=== PATIENT | male | born 1960 | race Caucasian/White ===

== ENCOUNTER → 2016-04-22 | Outpatient (CLI) | payer BC ==
[~2016-04-22] MED LIST: AMLODIPINE-BENAZEPRI; AMLODIPINE5 MG PO; CLINDAMYCIN HC300 MG PO; CLONAZEPAM1 MG PO; CLONIDINE HCL0.1 MG PO; COREG25 MG PO; COREG3.125 MG PO; CYMBALTA20 MG PO; DO NOT PROFILE T1 EA; DULOXETINE HCL DR 60; FLEXERIL10 MG PO; HYDR12.5C PO; LOSARTAN POTAS100 M1 PO; MECLIZINE HCL25 M2 PO; MEDROL DOSEPAK4 MG PO; MOTRIN800 MG PO; NAPROSYN500 MG PO; OMEPRAZOLE40 MG PO; OXYCODONE AND A1 TA3 PO; PREDNICOT10 MG PO; PREDNICOT20 MG PO; PREDNISONE10 MG PO; SPIRIVA -- 3018 MCG PO; TERAZOSIN HCL2 M1 PO; TERAZOSIN HCL5 M1 PO; VALIUM2 MG PO; VICODIN 5/500 505 MG PO; VISTARIL25 MG PO; ZUBSOLV1 TA2 SL; [UNRECOGNIZED DRUG - OTHER] PO
== END | disposition home or self-care (01) ==
LOC: RESCLI 01:33
DX: I10 Essential (primary) hypertension (principal); F41.1 Generalized anxiety disorder; F32.9 Major depressive disorder, single episode, unspecified

== ENCOUNTER → 2016-09-03 | Outpatient (CLI) | payer BC | END | disposition home or self-care (01) | LOC: RESCLI 03:23 | DX: M25.561 Pain in right knee (principal); R60.9 Edema, unspecified; I10 Essential (primary) hypertension; F17.200 Nicotine dependence, unspecified, uncomplicated; Z71.6 Tobacco abuse counseling ==

== ENCOUNTER → 2016-09-23 | Outpatient (CLI) | payer BC | END | disposition home or self-care (01) | LOC: RESCLI 02:24 | DX: I10 Essential (primary) hypertension (principal); R60.9 Edema, unspecified; M17.0 Bilateral primary osteoarthritis of knee; F33.9 Major depressive disorder, recurrent, unspecified; M54.9 Dorsalgia, unspecified; G89.29 Other chronic pain; E66.01 Morbid (severe) obesity due to excess calories; Z71.6 Tobacco abuse counseling; Z72.0 Tobacco use ==

== ENCOUNTER → 2016-10-16 | Outpatient (CLI) | payer BC | END | disposition home or self-care (01) | LOC: RAD 03:05 → RESCLI 03:05 | DX: M77.32 Calcaneal spur, left foot (principal); M77.31 Calcaneal spur, right foot ==

== ENCOUNTER → 2017-01-28 | Outpatient (CLI) | payer BC | END | disposition home or self-care (01) | LOC: RESCLI 02:28 | DX: I10 Essential (primary) hypertension (principal); F41.1 Generalized anxiety disorder; E66.01 Morbid (severe) obesity due to excess calories; M54.5 Low back pain; R60.9 Edema, unspecified; K21.9 Gastro-esophageal reflux disease without esophagitis; H81.10 Benign paroxysmal vertigo, unspecified ear; Z72.0 Tobacco use; Z71.6 Tobacco abuse counseling; Z88.5 Allergy status to narcotic agent ==

== ENCOUNTER → 2017-03-11 | Outpatient (CLI) | payer BC | END | disposition home or self-care (01) | LOC: RESCLI 01:04 | DX: I10 Essential (primary) hypertension (principal); F41.1 Generalized anxiety disorder; E66.01 Morbid (severe) obesity due to excess calories; M54.5 Low back pain; J44.9 Chronic obstructive pulmonary disease, unspecified; R60.9 Edema, unspecified; Z72.0 Tobacco use; Z71.6 Tobacco abuse counseling; Z91.018 Allergy to other foods ==

== ENCOUNTER 2017-05-12 19:41 | Emergency (ER) | payer BC ==
[~2017-05-12] VITALS: Ht 182.8 cm; Wt 136.1 kg
[2017-05-12] MEDS ORDERED: FUROSEMIDE40 MG PO (20:04)
[2017-05-12] MEDS ORDERED: POTASSIUM CHLO10 ME4 PO (20:05)
[2017-05-12] MEDS ORDERED: SPIRIVA -- 3018 MCG INH (20:05)
[2017-05-12] MEDS ORDERED: KETOROLAC10 MG PO (23:09)
== END 2017-05-12 23:16 | disposition home or self-care (01) ==
LOC: ED 19:41
DX: S82.832A Other fracture of upper and lower end of left fibula, initial encounter for closed fracture (principal); S92.342A Displaced fracture of fourth metatarsal bone, left foot, initial encounter for closed fracture; F17.200 Nicotine dependence, unspecified, uncomplicated; Z79.899 Other long term (current) drug therapy; W18.39XA Other fall on same level, initial encounter; Y93.89 Activity, other specified; Y92.89 Other specified places as the place of occurrence of the external cause; Y99.8 Other external cause status

== ENCOUNTER → 2017-05-14 | Outpatient (CLI) | payer BC ==
[~2017-05-14] MED LIST changes: +FUROSEMIDE40 MG PO; +KETOROLAC10 MG PO; +POTASSIUM CHLO10 ME4 PO; +SPIRIVA -- 3018 MCG INH
== END | disposition home or self-care (01) ==
LOC: RESCLI
DX: I10 Essential (primary) hypertension (principal); F41.1 Generalized anxiety disorder; E66.01 Morbid (severe) obesity due to excess calories; K21.9 Gastro-esophageal reflux disease without esophagitis; J44.9 Chronic obstructive pulmonary disease, unspecified; R60.0 Localized edema; M84.375A Stress fracture, left foot, initial encounter for fracture; Z72.0 Tobacco use; Z71.6 Tobacco abuse counseling

== ENCOUNTER 2017-08-07 12:48 | Emergency (ER) | payer OTHER, BC ==
[2017-08-07 13:38] LABS: HEMATOCRIT 43.2 % (42.0-52.0); HEMOGLOBIN 14.6 g/dl (14.0-18.0); MEAN CELL VOLUME 87.3 fl (80.0-94.0); MEAN CORPUSCULAR HGB 29.5 pg (27.0-31.0); MEAN CORPUSCULAR HGB CONC 33.8 g/dl (33.0-37.0); MEAN PLATELET VOLUME 8.9 fl (9.6-12.3); PLATELET COUNT AUTOMATED 407 10*3/uL (130-400); RED BLOOD COUNT 4.95 10*6/uL (4.50-5.90); RED CELL DISTRI WIDTH 13.8 % (0-14.5); WHITE BLOOD COUNT 13.7 10*3/uL (4.8-10.8)
[2017-08-07 13:50] LABS: ABG BASE EXCESS 4.4 mmol/L (-2.0-2.0); ABG HCO3 29.3 mmol/l (22-26); ABG O2 SATURATION 81.6 % (95-97); ARTERIAL BLOOD GAS PCO2 45.3 mmHg (35-45); ARTERIAL BLOOD GAS PH 7.424 (7.35-7.45)
[2017-08-07 13:52] LABS: ALBUMIN 3.4 gm/dl (3.1-4.5); ALKALINE PHOSPHATASE 136 U/L (45-117); BUN 15 mg/dl (7-24); CHLORIDE 98 mmol/L (98-107); CREATININE 0.66 mg/dL (0.70-1.30); POTASSIUM 3.6 mmol/L (3.5-5.1); SGOT/AST 26 IU/L (3-35); SGPT/ALT 28 U/L (12-78); SODIUM 136 mmol/L (136-145); TOTAL PROTEIN 7.1 gm/dL (6.4-8.2)
[2017-08-07 13:57] LABS: PLATELET SUFFICIENCY NORMAL (NORMAL); TOTAL CELLS COUNTED 100 #CELLS
== END 2017-08-07 15:35 | disposition left against medical advice (07) ==
LOC: ED 12:48
PROVIDERS: Nurse Practitioner Family
DX: S62.320A Displaced fracture of shaft of second metacarpal bone, right hand, initial encounter for closed fracture (principal); S62.322A Displaced fracture of shaft of third metacarpal bone, right hand, initial encounter for closed fracture; M54.2 Cervicalgia; F17.200 Nicotine dependence, unspecified, uncomplicated; R09.02 Hypoxemia; G89.29 Other chronic pain; V49.88XA Car occupant (driver) (passenger) injured in other specified transport accidents, initial encounter; Y93.89 Activity, other specified; Y92.413 State road as the place of occurrence of the external cause; Y99.9 Unspecified external cause status

== ENCOUNTER 2021-01-20 05:51 | Inpatient (IN) | payer OTHER ==
[2021-01-20] VITALS (8 sets, daily range): BP systolic 102–170; BP diastolic 62–89
[~2021-01-20] VITALS: Ht 182.8 cm; Wt 153.0 kg
[2021-01-20 06:16] LABS: HEMATOCRIT 50.6 % (42.0-52.0); MEAN CELL VOLUME 88.3 fl (80.0-94.0); MEAN CORPUSCULAR HGB 27.9 pg (27.0-31.0); MEAN CORPUSCULAR HGB CONC 31.6 g/dl (33.0-37.0); NUCLEATED RED BLOOD CELL 0.1 % (0.0-0.0); PLATELET COUNT AUTOMATED 422 10*3/uL (130-400); RED BLOOD COUNT 5.73 10*6/uL (4.50-5.90); RED CELL DISTRI WIDTH 14.6 % (0-14.5); WHITE BLOOD COUNT 28.2 10*3/uL (4.8-10.8)
[2021-01-20 06:38] LABS: ALKALINE PHOSPHATASE 147 U/L (45-117); BUN 16 mg/dl (7-24); CHLORIDE 100 mmol/L (98-107); CREATININE 0.77 mg/dL (0.70-1.30); SGOT/AST 40 IU/L (3-35); SGPT/ALT 31 U/L (12-78); SODIUM 134 mmol/L (136-145); TOTAL PROTEIN 7.6 gm/dL (6.4-8.2)
[2021-01-20 06:39] LABS: POLYCHROMASIA SLIGHT; POTASSIUM 4.4 mmol/L (3.5-5.1); TOTAL CELLS COUNTED 100 #CELLS; TOXIC GRANULATION SLIGHT; TROPONIN I < 0.015 ng/ml (<0.045); VACUOLATION OF NEUTROPHILS SLIGHT
[2021-01-20 06:40] LABS: PLATELET SUFFICIENCY HIGH (NORMAL)
[2021-01-20] MEDS ORDERED: DULCOLAX STOOL100 M1 PO (06:44)
[2021-01-20] MEDS ORDERED: NORVASC10 MG PO (06:44)
[2021-01-20] MEDS ORDERED: PRINIVIL20 M1 PO (06:45)
[2021-01-20] MEDS ORDERED: CYMBALTA60 MG PO (06:46)
[2021-01-20] MEDS ORDERED: VISTARIL25 MG PO (06:46)
[2021-01-20] MEDS ORDERED: SINEQUAN75 MG PO (06:47)
[2021-01-20] MEDS ORDERED: WELLBUTRIN XL300 MG PO (06:47)
[2021-01-20 07:48] LABS: ABG BASE EXCESS 1.8 mmol/L (-2.0-2.0); ARTERIAL BLOOD GAS PH 7.269 (7.35-7.45); ARTERIAL BLOOD GAS PO2 77.4 (80-90)
[2021-01-20 08:18] LABS: BILIRUBIN Negative (Negative); BLOOD Negative (Negative); CLARITY Clear (Clear); COLOR Yellow (Yellow); GLUCOSE Negative (Negative); KETONE Negative (Negative); LEUKO ESTERASE Negative (Negative); NITRITE Negative (Negative); SPECIFIC GRAVITY 1.015 (1.001-1.030)
[2021-01-20 08:25] LABS: URINE AMPHETAMINES < 1000 (1000ng/ml); URINE BARBITURATES < 200 (200ng/ml); URINE BENZODIAZEPINES < 200 (200ng/ml); URINE CANNABINOIDS (THC) < 50 (50ng/ml); URINE COCAINE < 300 (300ng/ml); URINE METHADONE < 300 (300ng/ml); URINE OPIATES < 300 (300ng/ml); URINE PHENCYCLIDINE < 25 (25ng/ml)
[2021-01-20 08:30] LABS: BACTERIA TRACE; EPITHELIAL CELLS 0-2; MUCOUS 2+; WBC 0-2 wbc/hpf (0-5)
[2021-01-21] VITALS: BP 95/52
[2021-01-21 04:00] VITALS: BP 101/67
[2021-01-21 05:53] LABS: ALBUMIN 2.3 gm/dl (3.1-4.5); ALKALINE PHOSPHATASE 101 U/L (45-117); CHLORIDE 103 mmol/L (98-107); CREATININE 1.03 mg/dL (0.70-1.30); POTASSIUM 4.2 mmol/L (3.5-5.1); SGOT/AST 12 IU/L (3-35); SGPT/ALT 20 U/L (12-78); SODIUM 136 mmol/L (136-145)
[2021-01-21 05:57] LABS: BUN 27 mg/dl (7-24)
[2021-01-21 06:12] LABS: HEMATOCRIT 43.9 % (42.0-52.0); MEAN CORPUSCULAR HGB 27.8 pg (27.0-31.0); MEAN CORPUSCULAR HGB CONC 30.1 g/dl (33.0-37.0); MEAN PLATELET VOLUME 9.9 fl (9.6-12.3); PLATELET COUNT AUTOMATED 302 10*3/uL (130-400); RED BLOOD COUNT 4.74 10*6/uL (4.50-5.90); WHITE BLOOD COUNT 25.5 10*3/uL (4.8-10.8)
[2021-01-21 06:15] LABS: MEAN CELL VOLUME 92.6 fl (80.0-94.0)
[2021-01-21 06:47] LABS: PLATELET SUFFICIENCY NORMAL (NORMAL); TOTAL CELLS COUNTED 100 #CELLS; TOXIC GRANULATION SLIGHT; VACUOLATION OF NEUTROPHILS SLIGHT
[2021-01-21 06:48] LABS: BURR CELLS FEW; POLYCHROMASIA SLIGHT
[2021-01-21 08:00] VITALS: BP 147/90
[2021-01-21 12:00] VITALS: BP 98/60
[2021-01-21 16:00] VITALS: BP 135/79
[2021-01-21 20:00] VITALS: BP 145/75
[2021-01-22] VITALS: BP 109/72
[2021-01-22 06:09] LABS: ALBUMIN 2.3 gm/dl (3.1-4.5); BUN 32 mg/dl (7-24); CHLORIDE 104 mmol/L (98-107); POTASSIUM 4.6 mmol/L (3.5-5.1); SODIUM 133 mmol/L (136-145)
[2021-01-22 06:12] LABS: ALKALINE PHOSPHATASE 107 U/L (45-117); CREATININE 0.88 mg/dL (0.70-1.30); HEMATOCRIT 44.8 % (42.0-52.0); MEAN CORPUSCULAR HGB 27.5 pg (27.0-31.0); MEAN CORPUSCULAR HGB CONC 29.9 g/dl (33.0-37.0); MEAN PLATELET VOLUME 9.7 fl (9.6-12.3); PLATELET COUNT AUTOMATED 324 10*3/uL (130-400); RED BLOOD COUNT 4.87 10*6/uL (4.50-5.90); RED CELL DISTRI WIDTH 14.8 % (0-14.5); SGOT/AST 15 IU/L (3-35); SGPT/ALT 22 U/L (12-78); TOTAL PROTEIN 6.8 gm/dL (6.4-8.2); WHITE BLOOD COUNT 21.7 10*3/uL (4.8-10.8)
[2021-01-22 06:47] LABS: BASOPHILS 1 % (0-1); PLATELET SUFFICIENCY NORMAL (NORMAL); TOTAL CELLS COUNTED 100 #CELLS
[2021-01-22 08:00] VITALS: BP 128/68
[2021-01-22 12:00] VITALS: BP 117/69
[2021-01-22 15:26] VITALS: BP 113/63
[2021-01-22 20:00] VITALS: BP 110/89
[2021-01-23] VITALS: BP 125/58
[2021-01-23 06:21] LABS: HEMATOCRIT 44.9 % (42.0-52.0); MEAN CELL VOLUME 90.2 fl (80.0-94.0); MEAN CORPUSCULAR HGB 27.7 pg (27.0-31.0); MEAN CORPUSCULAR HGB CONC 30.7 g/dl (33.0-37.0); MEAN PLATELET VOLUME 9.8 fl (9.6-12.3); PLATELET COUNT AUTOMATED 366 10*3/uL (130-400); RED BLOOD COUNT 4.98 10*6/uL (4.50-5.90); RED CELL DISTRI WIDTH 14.6 % (0-14.5); WHITE BLOOD COUNT 17.6 10*3/uL (4.8-10.8)
[2021-01-23 06:22] LABS: ALBUMIN 2.3 gm/dl (3.1-4.5); ALKALINE PHOSPHATASE 121 U/L (45-117); BUN 26 mg/dl (7-24); CHLORIDE 101 mmol/L (98-107); CREATININE 0.77 mg/dL (0.70-1.30); POTASSIUM 4.5 mmol/L (3.5-5.1); SGOT/AST 11 IU/L (3-35); SGPT/ALT 21 U/L (12-78); SODIUM 136 mmol/L (136-145)
[2021-01-23 07:19] LABS: PLATELET SUFFICIENCY NORMAL (NORMAL); POLYCHROMASIA SLIGHT; TOTAL CELLS COUNTED 100 #CELLS
[2021-01-23 07:20] LABS: TOXIC GRANULATION SLIGHT
[2021-01-23 08:00] VITALS: BP 139/86
[2021-01-23 08:44] LABS: ABG BASE EXCESS 3.7 mmol/L (-2.0-2.0); ARTERIAL BLOOD GAS PH 7.333 (7.35-7.45); ARTERIAL BLOOD GAS PO2 55.5 (80-90)
[2021-01-23 09:40] VITALS: BP 124/76
[2021-01-23 12:00] VITALS: BP 130/76
[2021-01-23 16:00] VITALS: BP 123/82
[2021-01-23 16:21] LABS: BUN 24 mg/dl (7-24); CHLORIDE 101 mmol/L (98-107); CREATININE 0.76 mg/dL (0.70-1.30); POTASSIUM 4.5 mmol/L (3.5-5.1); SODIUM 136 mmol/L (136-145)
[2021-01-23 20:00] VITALS: BP 130/74
[2021-01-24] VITALS: BP 131/80
[2021-01-24 04:00] VITALS: BP 152/87
[2021-01-24 08:00] VITALS: BP 129/90
[2021-01-24] MEDS ORDERED: BUMETANIDE2 MG PO (09:56)
[2021-01-24 12:00] VITALS: BP 128/80
[2021-01-24 16:00] VITALS: BP 139/86
[2021-01-24 20:00] VITALS: BP 120/57
[2021-01-25] VITALS: BP 134/90
[2021-01-25 04:00] VITALS: BP 140/86
[2021-01-25 06:20] LABS: CHLORIDE 96 mmol/L (98-107); SODIUM 136 mmol/L (136-145)
[2021-01-25 06:41] LABS: ALBUMIN 2.3 gm/dl (3.1-4.5); ALKALINE PHOSPHATASE 125 U/L (45-117); BUN 21 mg/dl (7-24); CREATININE 0.83 mg/dL (0.70-1.30); SGOT/AST 9 IU/L (3-35); SGPT/ALT 21 U/L (12-78); TOTAL PROTEIN 7.2 gm/dL (6.4-8.2)
[2021-01-25 06:47] LABS: POTASSIUM 3.3 mmol/L (3.5-5.1)
[2021-01-25 06:48] LABS: INTERNATIONAL NORM RATIO 1.1 (2.0-3.5)
[2021-01-25 06:50] LABS: HEMATOCRIT 47.1 % (42.0-52.0); MEAN CELL VOLUME 87.2 fl (80.0-94.0); MEAN CORPUSCULAR HGB 27.4 pg (27.0-31.0); MEAN CORPUSCULAR HGB CONC 31.4 g/dl (33.0-37.0); MEAN PLATELET VOLUME 9.9 fl (9.6-12.3); PLATELET COUNT AUTOMATED 442 10*3/uL (130-400); RED CELL DISTRI WIDTH 14.6 % (0-14.5); WHITE BLOOD COUNT 14.1 10*3/uL (4.8-10.8)
[2021-01-25 07:37] LABS: PLATELET SUFFICIENCY NORMAL (NORMAL); TOTAL CELLS COUNTED 100 #CELLS
[2021-01-25 08:00] VITALS: BP 141/80
[2021-01-25 08:02] LABS: ABG BASE EXCESS 12.7 mmol/L (-2.0-2.0); ARTERIAL BLOOD GAS PH 7.458 (7.35-7.45); ARTERIAL BLOOD GAS PO2 60.1 (80-90)
[2021-01-25 12:00] VITALS: BP 128/75
[2021-01-25 16:00] VITALS: BP 162/81
[2021-01-25 20:00] VITALS: BP 165/84
[2021-01-26] VITALS: BP 141/96
[2021-01-26 04:00] VITALS: BP 128/78
[2021-01-26 05:58] LABS: ALBUMIN 2.1 gm/dl (3.1-4.5); ALKALINE PHOSPHATASE 133 U/L (45-117); BUN 23 mg/dl (7-24); CHLORIDE 96 mmol/L (98-107); CREATININE 0.82 mg/dL (0.70-1.30); POTASSIUM 3.5 mmol/L (3.5-5.1); SGOT/AST 16 IU/L (3-35); SGPT/ALT 22 U/L (12-78); SODIUM 137 mmol/L (136-145)
[2021-01-26 06:19] LABS: HEMATOCRIT 46.6 % (42.0-52.0); MEAN CELL VOLUME 86.6 fl (80.0-94.0); MEAN CORPUSCULAR HGB 27.1 pg (27.0-31.0); MEAN CORPUSCULAR HGB CONC 31.3 g/dl (33.0-37.0); MEAN PLATELET VOLUME 9.6 fl (9.6-12.3); PLATELET COUNT AUTOMATED 460 10*3/uL (130-400); RED BLOOD COUNT 5.38 10*6/uL (4.50-5.90); RED CELL DISTRI WIDTH 14.6 % (0-14.5); WHITE BLOOD COUNT 12.8 10*3/uL (4.8-10.8)
[2021-01-26 07:19] LABS: ATYPICAL LYMPHS 3 % (0-0); TOTAL CELLS COUNTED 100 #CELLS
[2021-01-26 07:20] LABS: PLATELET SUFFICIENCY HIGH (NORMAL)
[2021-01-26 07:21] LABS: MICROCYTOSIS SLIGHT
[2021-01-26 08:00] VITALS: BP 142/83
[2021-01-26 12:00] VITALS: BP 147/80
[2021-01-26 16:00] VITALS: BP 127/62
[2021-01-26 20:00] VITALS: BP 136/73
[2021-01-27] VITALS: BP 108/66
[2021-01-27 04:02] VITALS: BP 100/56
[2021-01-27 04:48] LABS: HEMATOCRIT 45.7 % (42.0-52.0); MEAN CELL VOLUME 87.5 fl (80.0-94.0); MEAN CORPUSCULAR HGB 26.8 pg (27.0-31.0); MEAN CORPUSCULAR HGB CONC 30.6 g/dl (33.0-37.0); MEAN PLATELET VOLUME 9.3 fl (9.6-12.3); PLATELET COUNT AUTOMATED 432 10*3/uL (130-400); RED BLOOD COUNT 5.22 10*6/uL (4.50-5.90); RED CELL DISTRI WIDTH 14.7 % (0-14.5); WHITE BLOOD COUNT 12.5 10*3/uL (4.8-10.8)
[2021-01-27 05:06] LABS: ALBUMIN 2.1 gm/dl (3.1-4.5); ALKALINE PHOSPHATASE 119 U/L (45-117); BUN 25 mg/dl (7-24); CHLORIDE 97 mmol/L (98-107); CREATININE 0.89 mg/dL (0.70-1.30); POTASSIUM 3.7 mmol/L (3.5-5.1); SGOT/AST 18 IU/L (3-35); SGPT/ALT 24 U/L (12-78); SODIUM 135 mmol/L (136-145); TOTAL PROTEIN 6.6 gm/dL (6.4-8.2)
[2021-01-27 06:04] LABS: ATYPICAL LYMPHS 1 % (0-0); POLYCHROMASIA SLIGHT; TOTAL CELLS COUNTED 100 #CELLS
[2021-01-27 06:05] LABS: OVALOCYTES FEW; PLATELET SUFFICIENCY HIGH (NORMAL)
[2021-01-27 08:00] VITALS: BP 113/70
[2021-01-27 12:00] VITALS: BP 111/57
[2021-01-27 16:00] VITALS: BP 120/51
[2021-01-27 20:00] VITALS: BP 130/65
[2021-01-28] VITALS: BP 98/52
[2021-01-28 04:00] VITALS: BP 116/60
[2021-01-28 06:43] LABS: BUN 28 mg/dl (7-24); CHLORIDE 96 mmol/L (98-107); CREATININE 0.95 mg/dL (0.70-1.30); HEMATOCRIT 48.8 % (42.0-52.0); MEAN CORPUSCULAR HGB CONC 29.5 g/dl (33.0-37.0); MEAN PLATELET VOLUME 9.5 fl (9.6-12.3); PLATELET COUNT AUTOMATED 398 10*3/uL (130-400); POTASSIUM 4.1 mmol/L (3.5-5.1); RED BLOOD COUNT 5.34 10*6/uL (4.50-5.90); RED CELL DISTRI WIDTH 14.9 % (0-14.5); SODIUM 135 mmol/L (136-145); WHITE BLOOD COUNT 12.6 10*3/uL (4.8-10.8)
[2021-01-28 06:46] LABS: MEAN CELL VOLUME 91.4 fl (80.0-94.0)
[2021-01-28 07:31] LABS: BASOPHILS 1 % (0-1); PLATELET SUFFICIENCY NORMAL (NORMAL); POLYCHROMASIA SLIGHT; TOTAL CELLS COUNTED 100 #CELLS
[2021-01-28 08:00] VITALS: BP 130/74
[2021-01-28 12:00] VITALS: BP 93/60
[2021-01-28 16:00] VITALS: BP 126/70
[2021-01-28 20:00] VITALS: BP 126/70
[2021-01-29] VITALS (9 sets, daily range): BP systolic 90–154; BP diastolic 52–80
[2021-01-29 05:37] LABS: BUN 31 mg/dl (7-24); CHLORIDE 97 mmol/L (98-107); CREATININE 1.13 mg/dL (0.70-1.30); POTASSIUM 4.7 mmol/L (3.5-5.1); SODIUM 135 mmol/L (136-145)
[2021-01-29 06:20] LABS: HEMATOCRIT 45.7 % (42.0-52.0); MEAN CELL VOLUME 89.4 fl (80.0-94.0); MEAN CORPUSCULAR HGB 26.8 pg (27.0-31.0); MEAN PLATELET VOLUME 9.8 fl (9.6-12.3); PLATELET COUNT AUTOMATED 467 10*3/uL (130-400); RED BLOOD COUNT 5.11 10*6/uL (4.50-5.90); RED CELL DISTRI WIDTH 14.6 % (0-14.5); WHITE BLOOD COUNT 16.6 10*3/uL (4.8-10.8)
[2021-01-29 07:11] LABS: TOTAL CELLS COUNTED 100 #CELLS
[2021-01-29 07:12] LABS: PLATELET SUFFICIENCY HIGH (NORMAL)
[2021-01-29 23:17] LABS: ABG BASE EXCESS 8.8 mmol/L (-2.0-2.0); ARTERIAL BLOOD GAS PH 7.238 (7.35-7.45); ARTERIAL BLOOD GAS PO2 52.3 (80-90)
[2021-01-30] VITALS (55 sets, daily range): BP systolic 78–130; BP diastolic 48–76
[2021-01-30 06:02] LABS: ALBUMIN 1.8 gm/dl (3.1-4.5); ALKALINE PHOSPHATASE 134 U/L (45-117); BUN 32 mg/dl (7-24); CHLORIDE 95 mmol/L (98-107); CREATININE 1.12 mg/dL (0.70-1.30); SGOT/AST 22 IU/L (3-35); SGPT/ALT 25 U/L (12-78); SODIUM 137 mmol/L (136-145); TOTAL PROTEIN 6.2 gm/dL (6.4-8.2)
[2021-01-30 06:04] LABS: POTASSIUM 3.7 mmol/L (3.5-5.1)
[2021-01-30 06:19] LABS: HEMATOCRIT 41.6 % (42.0-52.0); MEAN CELL VOLUME 89.5 fl (80.0-94.0); MEAN CORPUSCULAR HGB 26.9 pg (27.0-31.0); PLATELET COUNT AUTOMATED 410 10*3/uL (130-400); RED BLOOD COUNT 4.65 10*6/uL (4.50-5.90); RED CELL DISTRI WIDTH 14.6 % (0-14.5); WHITE BLOOD COUNT 14.3 10*3/uL (4.8-10.8)
[2021-01-30 07:07] LABS: ABG BASE EXCESS 11.5 mmol/L (-2.0-2.0); ARTERIAL BLOOD GAS PH 7.394 (7.35-7.45); ARTERIAL BLOOD GAS PO2 61.9 (80-90)
[2021-01-30 07:11] LABS: ATYPICAL LYMPHS 2 % (0-0); TOTAL CELLS COUNTED 100 #CELLS
[2021-01-30 07:12] LABS: PLATELET SUFFICIENCY NORMAL (NORMAL)
[2021-01-30 13:16] LABS: ABG BASE EXCESS 9.9 mmol/L (-2.0-2.0); ARTERIAL BLOOD GAS PH 7.409 (7.35-7.45); ARTERIAL BLOOD GAS PO2 44.5 (80-90)
[2021-01-31] VITALS (7 sets, daily range): BP systolic 105–119; BP diastolic 4–70
[2021-01-31 06:31] LABS: HEMATOCRIT 44.2 % (42.0-52.0); MEAN CELL VOLUME 88.6 fl (80.0-94.0); MEAN CORPUSCULAR HGB 27.1 pg (27.0-31.0); MEAN CORPUSCULAR HGB CONC 30.5 g/dl (33.0-37.0); MEAN PLATELET VOLUME 9.9 fl (9.6-12.3); PLATELET COUNT AUTOMATED 388 10*3/uL (130-400); RED BLOOD COUNT 4.99 10*6/uL (4.50-5.90); RED CELL DISTRI WIDTH 14.9 % (0-14.5); WHITE BLOOD COUNT 14.7 10*3/uL (4.8-10.8)
[2021-01-31 06:36] LABS: ALBUMIN 1.9 gm/dl (3.1-4.5); BUN 29 mg/dl (7-24); CHLORIDE 94 mmol/L (98-107); POTASSIUM 4.3 mmol/L (3.5-5.1); SODIUM 135 mmol/L (136-145)
[2021-01-31 06:39] LABS: ALKALINE PHOSPHATASE 130 U/L (45-117); SGOT/AST 18 IU/L (3-35); SGPT/ALT 21 U/L (12-78); TOTAL PROTEIN 6.4 gm/dL (6.4-8.2)
[2021-01-31 07:53] LABS: BASOPHILS 2 % (0-1); BURR CELLS FEW; PLATELET SUFFICIENCY NORMAL (NORMAL); POLYCHROMASIA SLIGHT; ROULEAUX SLIGHT; TOTAL CELLS COUNTED 100 #CELLS
[2021-01-31 07:54] LABS: SCHISTOCYTES FEW
[2021-01-31 11:01] LABS: ABG BASE EXCESS 12.8 mmol/L (-2.0-2.0); ARTERIAL BLOOD GAS PH 7.399 (7.35-7.45); ARTERIAL BLOOD GAS PO2 53.1 (80-90)
[2021-01-31 13:06] LABS: ACID FAST SPEC PROCESSING Concentration (.)
[2021-02-01] VITALS (12 sets, daily range): BP systolic 98–119; BP diastolic 54–71
[2021-02-01 04:08] LABS: MEAN CELL VOLUME 87.3 fl (80.0-94.0); MEAN CORPUSCULAR HGB CONC 30.9 g/dl (33.0-37.0); MEAN PLATELET VOLUME 9.7 fl (9.6-12.3); PLATELET COUNT AUTOMATED 380 10*3/uL (130-400); RED BLOOD COUNT 5.04 10*6/uL (4.50-5.90); RED CELL DISTRI WIDTH 14.8 % (0-14.5); WHITE BLOOD COUNT 13.1 10*3/uL (4.8-10.8)
[2021-02-01 04:49] LABS: PLATELET SUFFICIENCY NORMAL (NORMAL); TOTAL CELLS COUNTED 100 #CELLS
[2021-02-01 05:55] LABS: BUN 25 mg/dl (7-24); CHLORIDE 92 mmol/L (98-107); CREATININE 1.15 mg/dL (0.70-1.30); POTASSIUM 4.2 mmol/L (3.5-5.1); SODIUM 135 mmol/L (136-145)
[2021-02-02] VITALS (12 sets, daily range): BP systolic 95–135; BP diastolic 53–75
[2021-02-02 05:51] LABS: BUN 23 mg/dl (7-24); CHLORIDE 92 mmol/L (98-107); POTASSIUM 4.2 mmol/L (3.5-5.1); SODIUM 136 mmol/L (136-145)
[2021-02-02 05:52] LABS: CREATININE 1.16 mg/dL (0.70-1.30)
[2021-02-02 06:18] LABS: HEMATOCRIT 45.7 % (42.0-52.0); MEAN CELL VOLUME 89.4 fl (80.0-94.0); MEAN CORPUSCULAR HGB 26.8 pg (27.0-31.0); PLATELET COUNT AUTOMATED 426 10*3/uL (130-400); RED BLOOD COUNT 5.11 10*6/uL (4.50-5.90); WHITE BLOOD COUNT 12.8 10*3/uL (4.8-10.8)
[2021-02-02 07:28] LABS: ABG BASE EXCESS 4.9 mmol/L (-2.0-2.0); ARTERIAL BLOOD GAS PH 7.363 (7.35-7.45); ARTERIAL BLOOD GAS PO2 64.3 (80-90)
[2021-02-02 07:35] LABS: BASOPHILS 1 % (0-1); TOTAL CELLS COUNTED 100 #CELLS
[2021-02-02 07:36] LABS: BURR CELLS FEW; PLATELET SUFFICIENCY HIGH (NORMAL)
[2021-02-02 11:07] LABS: ACID FAST SPEC PROCESSING Concentration (.)
[2021-02-03] VITALS (12 sets, daily range): BP systolic 96–109; BP diastolic 58–66
[2021-02-03 05:54] LABS: BUN 23 mg/dl (7-24); CHLORIDE 92 mmol/L (98-107); CREATININE 1.14 mg/dL (0.70-1.30); POTASSIUM 4.1 mmol/L (3.5-5.1); SODIUM 134 mmol/L (136-145)
[2021-02-03 06:08] LABS: HEMATOCRIT 45.1 % (42.0-52.0); MEAN CORPUSCULAR HGB 27.3 pg (27.0-31.0); MEAN CORPUSCULAR HGB CONC 30.4 g/dl (33.0-37.0); MEAN PLATELET VOLUME 9.9 fl (9.6-12.3); PLATELET COUNT AUTOMATED 435 10*3/uL (130-400); RED BLOOD COUNT 5.01 10*6/uL (4.50-5.90); RED CELL DISTRI WIDTH 15.2 % (0-14.5); WHITE BLOOD COUNT 12.4 10*3/uL (4.8-10.8)
[2021-02-03 09:52] LABS: ATYPICAL LYMPHS 1 % (0-0); PLATELET SUFFICIENCY HIGH (NORMAL); TOTAL CELLS COUNTED 100 #CELLS
[2021-02-04] VITALS (12 sets, daily range): BP systolic 95–125; BP diastolic 50–77
[2021-02-04 05:59] LABS: MEAN CELL VOLUME 88.4 fl (80.0-94.0); MEAN CORPUSCULAR HGB 26.9 pg (27.0-31.0); MEAN CORPUSCULAR HGB CONC 30.4 g/dl (33.0-37.0); MEAN PLATELET VOLUME 9.8 fl (9.6-12.3); PLATELET COUNT AUTOMATED 458 10*3/uL (130-400); RED BLOOD COUNT 5.09 10*6/uL (4.50-5.90); RED CELL DISTRI WIDTH 15.1 % (0-14.5); WHITE BLOOD COUNT 15.7 10*3/uL (4.8-10.8)
[2021-02-04 06:21] LABS: BUN 26 mg/dl (7-24); CHLORIDE 94 mmol/L (98-107); CREATININE 1.16 mg/dL (0.70-1.30); POTASSIUM 3.8 mmol/L (3.5-5.1); SODIUM 137 mmol/L (136-145)
[2021-02-04 06:43] LABS: PLATELET SUFFICIENCY HIGH (NORMAL); TOTAL CELLS COUNTED 100 #CELLS
[2021-02-05] VITALS (12 sets, daily range): BP systolic 94–114; BP diastolic 29–72
[2021-02-05 06:17] LABS: HEMATOCRIT 43.8 % (42.0-52.0); MEAN CELL VOLUME 88.8 fl (80.0-94.0); MEAN CORPUSCULAR HGB 27.4 pg (27.0-31.0); MEAN CORPUSCULAR HGB CONC 30.8 g/dl (33.0-37.0); MEAN PLATELET VOLUME 9.4 fl (9.6-12.3); PLATELET COUNT AUTOMATED 415 10*3/uL (130-400); RED BLOOD COUNT 4.93 10*6/uL (4.50-5.90); RED CELL DISTRI WIDTH 15.4 % (0-14.5); WHITE BLOOD COUNT 12.6 10*3/uL (4.8-10.8)
[2021-02-05 06:23] LABS: CHLORIDE 95 mmol/L (98-107); POTASSIUM 3.8 mmol/L (3.5-5.1); SODIUM 135 mmol/L (136-145)
[2021-02-05 06:29] LABS: ALBUMIN 1.9 gm/dl (3.1-4.5); ALKALINE PHOSPHATASE 160 U/L (45-117); BUN 26 mg/dl (7-24); CREATININE 1.01 mg/dL (0.70-1.30); SGOT/AST 48 IU/L (3-35); SGPT/ALT 38 U/L (12-78); TOTAL PROTEIN 6.7 gm/dL (6.4-8.2)
[2021-02-05 07:49] LABS: PLATELET SUFFICIENCY HIGH (NORMAL); TOTAL CELLS COUNTED 100 #CELLS
[2021-02-05 07:50] LABS: POLYCHROMASIA SLIGHT; ROULEAUX SLIGHT
[2021-02-06] VITALS (12 sets, daily range): BP systolic 100–142; BP diastolic 63–85
[2021-02-06 06:11] LABS: BUN 27 mg/dl (7-24); CHLORIDE 95 mmol/L (98-107); POTASSIUM 3.8 mmol/L (3.5-5.1); SGOT/AST 111 IU/L (3-35); SGPT/ALT 46 U/L (12-78); SODIUM 136 mmol/L (136-145)
[2021-02-06 06:13] LABS: ALKALINE PHOSPHATASE 158 U/L (45-117); CREATININE 1.06 mg/dL (0.70-1.30); TOTAL PROTEIN 7.1 gm/dL (6.4-8.2)
[2021-02-06 06:18] LABS: HEMATOCRIT 46.6 % (42.0-52.0); MEAN CELL VOLUME 87.9 fl (80.0-94.0); MEAN CORPUSCULAR HGB 26.6 pg (27.0-31.0); MEAN CORPUSCULAR HGB CONC 30.3 g/dl (33.0-37.0); MEAN PLATELET VOLUME 9.5 fl (9.6-12.3); PLATELET COUNT AUTOMATED 446 10*3/uL (130-400); RED CELL DISTRI WIDTH 15.2 % (0-14.5); WHITE BLOOD COUNT 12.3 10*3/uL (4.8-10.8)
[2021-02-06 07:18] LABS: BASOPHILS 2 % (0-1); TOTAL CELLS COUNTED 100 #CELLS
[2021-02-06 07:19] LABS: PLATELET SUFFICIENCY HIGH (NORMAL); POLYCHROMASIA SLIGHT; ROULEAUX SLIGHT
[2021-02-07] VITALS (12 sets, daily range): BP systolic 91–145; BP diastolic 64–82
[2021-02-07 04:49] LABS: HEMATOCRIT 50.5 % (42.0-52.0); MEAN CELL VOLUME 86.8 fl (80.0-94.0); MEAN CORPUSCULAR HGB 26.5 pg (27.0-31.0); MEAN CORPUSCULAR HGB CONC 30.5 g/dl (33.0-37.0); MEAN PLATELET VOLUME 9.7 fl (9.6-12.3); PLATELET COUNT AUTOMATED 523 10*3/uL (130-400); RED BLOOD COUNT 5.82 10*6/uL (4.50-5.90); RED CELL DISTRI WIDTH 15.3 % (0-14.5); WHITE BLOOD COUNT 12.9 10*3/uL (4.8-10.8)
[2021-02-07 05:19] LABS: ALKALINE PHOSPHATASE 153 U/L (45-117); BUN 34 mg/dl (7-24); CHLORIDE 97 mmol/L (98-107); CREATININE 1.02 mg/dL (0.70-1.30); POTASSIUM 4.1 mmol/L (3.5-5.1); SGOT/AST 80 IU/L (3-35); SGPT/ALT 43 U/L (12-78); SODIUM 137 mmol/L (136-145)
[2021-02-07 06:28] LABS: TOTAL PROTEIN 7.7 gm/dL (6.4-8.2)
[2021-02-07 07:01] LABS: PLATELET SUFFICIENCY HIGH (NORMAL); POLYCHROMASIA SLIGHT; TOTAL CELLS COUNTED 100 #CELLS; TOXIC GRANULATION SLIGHT; VACUOLATION OF NEUTROPHILS SLIGHT
[2021-02-07 07:02] LABS: ROULEAUX MODERATE
[2021-02-07 14:40] LABS: ABG BASE EXCESS 9.7 mmol/L (-2.0-2.0); ARTERIAL BLOOD GAS PH 7.375 (7.35-7.45); ARTERIAL BLOOD GAS PO2 71.9 (80-90)
[2021-02-08] VITALS (15 sets, daily range): BP systolic 80–122; BP diastolic 47–78
[2021-02-08 05:40] LABS: BUN 40 mg/dl (7-24); CHLORIDE 97 mmol/L (98-107); POTASSIUM 4.2 mmol/L (3.5-5.1); SGOT/AST 95 IU/L (3-35); SGPT/ALT 41 U/L (12-78); SODIUM 138 mmol/L (136-145)
[2021-02-08 05:41] LABS: ALKALINE PHOSPHATASE 139 U/L (45-117); TOTAL PROTEIN 7.5 gm/dL (6.4-8.2)
[2021-02-08 06:12] LABS: HEMATOCRIT 51.5 % (42.0-52.0); MEAN CELL VOLUME 88.6 fl (80.0-94.0); MEAN CORPUSCULAR HGB CONC 30.5 g/dl (33.0-37.0); MEAN PLATELET VOLUME 9.9 fl (9.6-12.3); PLATELET COUNT AUTOMATED 527 10*3/uL (130-400); RED BLOOD COUNT 5.81 10*6/uL (4.50-5.90); RED CELL DISTRI WIDTH 15.6 % (0-14.5); WHITE BLOOD COUNT 13.9 10*3/uL (4.8-10.8)
[2021-02-08 07:12] LABS: PLATELET SUFFICIENCY HIGH (NORMAL); TOTAL CELLS COUNTED 100 #CELLS
[2021-02-08 07:13] LABS: POLYCHROMASIA SLIGHT; ROULEAUX SLIGHT; VACUOLATION OF NEUTROPHILS SLIGHT
[2021-02-09] VITALS (96 sets, daily range): BP systolic 81–135; BP diastolic 48–82
[2021-02-09 05:20] LABS: ALBUMIN 1.9 gm/dl (3.1-4.5); CREATININE 1.97 mg/dL (0.70-1.30); POTASSIUM 4.4 mmol/L (3.5-5.1)
[2021-02-09 05:54] LABS: HEMATOCRIT 46.7 % (42.0-52.0); MEAN CELL VOLUME 88.3 fl (80.0-94.0); MEAN CORPUSCULAR HGB 26.7 pg (27.0-31.0); MEAN CORPUSCULAR HGB CONC 30.2 g/dl (33.0-37.0); PLATELET COUNT AUTOMATED 589 10*3/uL (130-400); RED BLOOD COUNT 5.29 10*6/uL (4.50-5.90); RED CELL DISTRI WIDTH 15.9 % (0-14.5); WHITE BLOOD COUNT 17.5 10*3/uL (4.8-10.8)
[2021-02-09 07:14] LABS: BASOPHILS 2 % (0-1); PLATELET SUFFICIENCY HIGH (NORMAL); TOTAL CELLS COUNTED 100 #CELLS
[2021-02-09 11:01] LABS: ABG BASE EXCESS 5.6 mmol/L (-2.0-2.0); ARTERIAL BLOOD GAS PH 7.321 (7.35-7.45)
[2021-02-09 16:33] LABS: BILIRUBIN Negative (Negative); BLOOD Negative (Negative); CLARITY Clear (Clear); COLOR Yellow (Yellow); GLUCOSE Negative (Negative); KETONE Negative (Negative); LEUKO ESTERASE Negative (Negative); NITRITE Negative (Negative); SPECIFIC GRAVITY 1.015 (1.001-1.030); UROBILINOGEN 0.2 E.U./dl (0.0-1.0)
[2021-02-09 16:39] LABS: URINE CREATININE RANDOM 25.4 mg/dL
[2021-02-09 16:47] LABS: EPITHELIAL CELLS 0-2; RBC 0-2 rbc/hpf (0-2)
[2021-02-09 16:48] LABS: BACTERIA 3+; CALCIUM OXALATE CRYSTALS Trace; HYALINE CAST TNTC
[2021-02-10] VITALS (96 sets, daily range): BP systolic 75–129; BP diastolic 51–93
[2021-02-10 05:40] LABS: ALBUMIN 2.1 gm/dl (3.1-4.5); ALKALINE PHOSPHATASE 115 U/L (45-117); CHLORIDE 97 mmol/L (98-107); CREATININE 0.93 mg/dL (0.70-1.30); POTASSIUM 4.4 mmol/L (3.5-5.1); SGOT/AST 45 IU/L (3-35); SGPT/ALT 33 U/L (12-78); SODIUM 135 mmol/L (136-145); TOTAL PROTEIN 7.3 gm/dL (6.4-8.2)
[2021-02-10 05:48] LABS: BUN 37 mg/dl (7-24)
[2021-02-10 06:22] LABS: HEMATOCRIT 47.3 % (42.0-52.0); MEAN CELL VOLUME 86.5 fl (80.0-94.0); MEAN CORPUSCULAR HGB 27.1 pg (27.0-31.0); MEAN CORPUSCULAR HGB CONC 31.3 g/dl (33.0-37.0); PLATELET COUNT AUTOMATED 527 10*3/uL (130-400); RED BLOOD COUNT 5.47 10*6/uL (4.50-5.90); RED CELL DISTRI WIDTH 15.4 % (0-14.5); WHITE BLOOD COUNT 15.5 10*3/uL (4.8-10.8)
[2021-02-10 07:29] LABS: BURR CELLS FEW; PLATELET SUFFICIENCY HIGH (NORMAL); TOTAL CELLS COUNTED 100 #CELLS; TOXIC GRANULATION SLIGHT
[2021-02-11] VITALS (96 sets, daily range): BP systolic 84–138; BP diastolic 40–86
[2021-02-11 05:56] LABS: ALBUMIN 2.1 gm/dl (3.1-4.5); BUN 35 mg/dl (7-24); CHLORIDE 100 mmol/L (98-107); CHOLESTEROL 256 mg/dL (<200); CREATININE 0.96 mg/dL (0.70-1.30); POTASSIUM 4.9 mmol/L (3.5-5.1); SGOT/AST 34 IU/L (3-35); SGPT/ALT 28 U/L (12-78); SODIUM 136 mmol/L (136-145); TOTAL PROTEIN 7.3 gm/dL (6.4-8.2); TRIGLYCERIDES 466 mg/dl (<150)
[2021-02-11 05:57] LABS: ALKALINE PHOSPHATASE 111 U/L (45-117)
[2021-02-11 06:18] LABS: HEMATOCRIT 48.7 % (42.0-52.0); MEAN CELL VOLUME 87.1 fl (80.0-94.0); MEAN CORPUSCULAR HGB 26.8 pg (27.0-31.0); MEAN CORPUSCULAR HGB CONC 30.8 g/dl (33.0-37.0); MEAN PLATELET VOLUME 10.4 fl (9.6-12.3); PLATELET COUNT AUTOMATED 606 10*3/uL (130-400); RED BLOOD COUNT 5.59 10*6/uL (4.50-5.90); RED CELL DISTRI WIDTH 15.3 % (0-14.5); WHITE BLOOD COUNT 13.5 10*3/uL (4.8-10.8)
[2021-02-11 06:58] LABS: BASOPHILS 2 % (0-1); PLATELET SUFFICIENCY HIGH (NORMAL); TOTAL CELLS COUNTED 100 #CELLS
[2021-02-11 06:59] LABS: POLYCHROMASIA SLIGHT
[2021-02-11 07:00] LABS: TOXIC GRANULATION SLIGHT
[2021-02-11 11:15] LABS: BILIRUBIN Negative (Negative); BLOOD Negative (Negative); CLARITY Clear (Clear); COLOR Dark Yellow (Yellow); GLUCOSE Negative (Negative); KETONE Negative (Negative); LEUKO ESTERASE Negative (Negative); NITRITE Negative (Negative)
[2021-02-11 11:34] LABS: BACTERIA 2+; EPITHELIAL CELLS 0-2; MUCOUS 2+; WBC 0-2 wbc/hpf (0-5)
[2021-02-12] VITALS (35 sets, daily range): BP systolic 88–133; BP diastolic 49–90
[2021-02-12 06:02] LABS: ALBUMIN 1.9 gm/dl (3.1-4.5); BUN 31 mg/dl (7-24); CHLORIDE 104 mmol/L (98-107); CREATININE 1.09 mg/dL (0.70-1.30); POTASSIUM 4.8 mmol/L (3.5-5.1); SGOT/AST 38 IU/L (3-35); SGPT/ALT 27 U/L (12-78); SODIUM 138 mmol/L (136-145)
[2021-02-12 06:04] LABS: ALKALINE PHOSPHATASE 104 U/L (45-117); TOTAL PROTEIN 6.7 gm/dL (6.4-8.2); TRIGLYCERIDES 229 mg/dl (<150)
[2021-02-12 06:14] LABS: HEMATOCRIT 46.5 % (42.0-52.0); MEAN CELL VOLUME 87.1 fl (80.0-94.0); MEAN CORPUSCULAR HGB 26.2 pg (27.0-31.0); MEAN CORPUSCULAR HGB CONC 30.1 g/dl (33.0-37.0); MEAN PLATELET VOLUME 10.6 fl (9.6-12.3); PLATELET COUNT AUTOMATED 554 10*3/uL (130-400); RED BLOOD COUNT 5.34 10*6/uL (4.50-5.90); RED CELL DISTRI WIDTH 15.3 % (0-14.5); WHITE BLOOD COUNT 13.3 10*3/uL (4.8-10.8)
[2021-02-12 08:13] LABS: ATYPICAL LYMPHS 1 % (0-0); BASOPHILS 1 % (0-1); TOTAL CELLS COUNTED 100 #CELLS
[2021-02-12 08:14] LABS: PLATELET SUFFICIENCY HIGH (NORMAL)
[2021-02-12 08:15] LABS: POLYCHROMASIA SLIGHT
[2021-02-12 14:25] LABS: ABG BASE EXCESS -1.5 mmol/L (-2.0-2.0); ARTERIAL BLOOD GAS PH 7.325 (7.35-7.45); ARTERIAL BLOOD GAS PO2 77.9 (80-90)
[2021-02-13] VITALS: BP 101/57
[2021-02-13 04:00] VITALS: BP 102/59
[2021-02-13 06:01] LABS: ALBUMIN 1.8 gm/dl (3.1-4.5); ALKALINE PHOSPHATASE 89 U/L (45-117); CHLORIDE 109 mmol/L (98-107); CREATININE 1.22 mg/dL (0.70-1.30); SGOT/AST 45 IU/L (3-35); SGPT/ALT 30 U/L (12-78); SODIUM 139 mmol/L (136-145); TOTAL PROTEIN 6.4 gm/dL (6.4-8.2)
[2021-02-13 06:26] LABS: BUN 47 mg/dl (7-24)
[2021-02-13 06:30] LABS: HEMATOCRIT 45.3 % (42.0-52.0); MEAN CELL VOLUME 88.8 fl (80.0-94.0); MEAN CORPUSCULAR HGB 26.9 pg (27.0-31.0); MEAN CORPUSCULAR HGB CONC 30.2 g/dl (33.0-37.0); MEAN PLATELET VOLUME 10.9 fl (9.6-12.3); PLATELET COUNT AUTOMATED 412 10*3/uL (130-400); RED CELL DISTRI WIDTH 15.7 % (0-14.5); WHITE BLOOD COUNT 12.5 10*3/uL (4.8-10.8)
[2021-02-13 07:29] LABS: BASOPHILS 1 % (0-1); POLYCHROMASIA SLIGHT; TOTAL CELLS COUNTED 100 #CELLS
[2021-02-13 07:31] LABS: PLATELET SUFFICIENCY HIGH (NORMAL)
[2021-02-13 08:00] VITALS: BP 89/51
[2021-02-13 10:41] LABS: ABG BASE EXCESS -1.7 mmol/L (-2.0-2.0); ARTERIAL BLOOD GAS PH 7.282 (7.35-7.45)
[2021-02-13 12:00] VITALS: BP 86/56
[2021-02-13 16:00] VITALS: BP 90/42
== END 2021-02-13 15:14 | disposition hospice, inpatient (51) | DRG 870 ==
LOC: ED 05:51 → ICCU 07:33 → 4E 07:33 → EDHOLD 07:33 → ICCU 08:30 → 4E 01-21 16:53 → ICCU 01-23 09:32
PROVIDERS: Emergency Medicine; Family Medicine; Hospitalist; Internal Medicine; Internal Medicine Critical Care Medicine; Internal Medicine Infectious Disease; Physician Assistant Medical; Registered Nurse; Social Worker Clinical; Student in an Organized Health Care Education/Training Program; Surgery; ADMIT Internal Medicine; ATTEND Internal Medicine
PROC: 5A09357 Assistance with Respiratory Ventilation, Less than 24 Consecutive Hours, Continuous Positive Airway Pressure (ICD-10-PCS; principal; 2021-01-20)
PROC: 5A0935A Assistance with Respiratory Ventilation, Less than 24 Consecutive Hours, High Flow/Velocity Cannula (ICD-10-PCS; 2021-01-20)
PROC: 5A09357 Assistance with Respiratory Ventilation, Less than 24 Consecutive Hours, Continuous Positive Airway Pressure (ICD-10-PCS; 2021-01-21)
PROC: 5A0935A Assistance with Respiratory Ventilation, Less than 24 Consecutive Hours, High Flow/Velocity Cannula (ICD-10-PCS; 2021-01-21)
PROC: 5A09357 Assistance with Respiratory Ventilation, Less than 24 Consecutive Hours, Continuous Positive Airway Pressure (ICD-10-PCS; 2021-01-22)
PROC: 5A09557 Assistance with Respiratory Ventilation, Greater than 96 Consecutive Hours, Continuous Positive Airway Pressure (ICD-10-PCS; 2021-01-22)
PROC: 5A09457 Assistance with Respiratory Ventilation, 24-96 Consecutive Hours, Continuous Positive Airway Pressure (ICD-10-PCS; 2021-01-28)
PROC: 5A0935A Assistance with Respiratory Ventilation, Less than 24 Consecutive Hours, High Flow/Velocity Cannula (ICD-10-PCS; 2021-01-28)
PROC: 0BH17EZ Insertion of Endotracheal Airway into Trachea, Via Natural or Artificial Opening (ICD-10-PCS; 2021-01-29)
PROC: 5A1955Z Respiratory Ventilation, Greater than 96 Consecutive Hours (ICD-10-PCS; 2021-01-29)
PROC: 02HV33Z Insertion of Infusion Device into Superior Vena Cava, Percutaneous Approach (ICD-10-PCS; 2021-01-29)
PROC: B548ZZA Ultrasonography of Superior Vena Cava, Guidance (ICD-10-PCS; 2021-01-29)
PROC: 0BC98ZZ Extirpation of Matter from Lingula Bronchus, Via Natural or Artificial Opening Endoscopic (ICD-10-PCS; 2021-01-30)
PROC: 0BC48ZZ Extirpation of Matter from Right Upper Lobe Bronchus, Via Natural or Artificial Opening Endoscopic (ICD-10-PCS; 2021-01-30)
PROC: 0BC88ZZ Extirpation of Matter from Left Upper Lobe Bronchus, Via Natural or Artificial Opening Endoscopic (ICD-10-PCS; 2021-01-30)
PROC: 0BC58ZZ Extirpation of Matter from Right Middle Lobe Bronchus, Via Natural or Artificial Opening Endoscopic (ICD-10-PCS; 2021-01-30)
PROC: 0BC38ZZ Extirpation of Matter from Right Main Bronchus, Via Natural or Artificial Opening Endoscopic (ICD-10-PCS; 2021-01-30)
PROC: 0BC78ZZ Extirpation of Matter from Left Main Bronchus, Via Natural or Artificial Opening Endoscopic (ICD-10-PCS; 2021-01-30)
PROC: 0BC68ZZ Extirpation of Matter from Right Lower Lobe Bronchus, Via Natural or Artificial Opening Endoscopic (ICD-10-PCS; 2021-01-30)
PROC: 0BCB8ZZ Extirpation of Matter from Left Lower Lobe Bronchus, Via Natural or Artificial Opening Endoscopic (ICD-10-PCS; 2021-01-30)
PROC: 0BC18ZZ Extirpation of Matter from Trachea, Via Natural or Artificial Opening Endoscopic (ICD-10-PCS; 2021-01-30)
PROC: 0BC98ZZ Extirpation of Matter from Lingula Bronchus, Via Natural or Artificial Opening Endoscopic (ICD-10-PCS; 2021-02-01)
PROC: 0BC48ZZ Extirpation of Matter from Right Upper Lobe Bronchus, Via Natural or Artificial Opening Endoscopic (ICD-10-PCS; 2021-02-01)
PROC: 0BC88ZZ Extirpation of Matter from Left Upper Lobe Bronchus, Via Natural or Artificial Opening Endoscopic (ICD-10-PCS; 2021-02-01)
PROC: 0BC58ZZ Extirpation of Matter from Right Middle Lobe Bronchus, Via Natural or Artificial Opening Endoscopic (ICD-10-PCS; 2021-02-01)
PROC: 0BC38ZZ Extirpation of Matter from Right Main Bronchus, Via Natural or Artificial Opening Endoscopic (ICD-10-PCS; 2021-02-01)
PROC: 0BC78ZZ Extirpation of Matter from Left Main Bronchus, Via Natural or Artificial Opening Endoscopic (ICD-10-PCS; 2021-02-01)
PROC: 0BC68ZZ Extirpation of Matter from Right Lower Lobe Bronchus, Via Natural or Artificial Opening Endoscopic (ICD-10-PCS; 2021-02-01)
PROC: 0BCB8ZZ Extirpation of Matter from Left Lower Lobe Bronchus, Via Natural or Artificial Opening Endoscopic (ICD-10-PCS; 2021-02-01)
PROC: 0BC18ZZ Extirpation of Matter from Trachea, Via Natural or Artificial Opening Endoscopic (ICD-10-PCS; 2021-02-01)
PROC: 0HBRXZZ Excision of Toe Nail, External Approach (ICD-10-PCS; 2021-02-07)
PROC: 0HBRXZZ Excision of Toe Nail, External Approach (ICD-10-PCS; 2021-02-07)
PROC: 0HBRXZZ Excision of Toe Nail, External Approach (ICD-10-PCS; 2021-02-07)
PROC: 0HBRXZZ Excision of Toe Nail, External Approach (ICD-10-PCS; 2021-02-07)
PROC: 0HBRXZZ Excision of Toe Nail, External Approach (ICD-10-PCS; 2021-02-07)
PROC: 0HBRXZZ Excision of Toe Nail, External Approach (ICD-10-PCS; 2021-02-07)
PROC: 0HBRXZZ Excision of Toe Nail, External Approach (ICD-10-PCS; 2021-02-07)
PROC: 0HBRXZZ Excision of Toe Nail, External Approach (ICD-10-PCS; 2021-02-07)
PROC: 0HBRXZZ Excision of Toe Nail, External Approach (ICD-10-PCS; 2021-02-07)
PROC: 0HBRXZZ Excision of Toe Nail, External Approach (ICD-10-PCS; 2021-02-07)
DX: A41.9 Sepsis, unspecified organism (principal); E43 Unspecified severe protein-calorie malnutrition; J69.0 Pneumonitis due to inhalation of food and vomit; N17.0 Acute kidney failure with tubular necrosis; J96.21 Acute and chronic respiratory failure with hypoxia; J96.22 Acute and chronic respiratory failure with hypercapnia; E87.1 Hypo-osmolality and hyponatremia; Z68.42 Body mass index [BMI] 45.0-49.9, adult; Z20.822 Contact with and (suspected) exposure to COVID-19; F41.9 Anxiety disorder, unspecified; R73.9 Hyperglycemia, unspecified; R74.01 Elevation of levels of liver transaminase levels; E66.9 Obesity, unspecified; F11.10 Opioid abuse, uncomplicated; I11.0 Hypertensive heart disease with heart failure; I50.9 Heart failure, unspecified; F32.A Depression, unspecified; B35.1 Tinea unguium; R65.20 Severe sepsis without septic shock; J44.9 Chronic obstructive pulmonary disease, unspecified; E83.41 Hypermagnesemia; K59.00 Constipation, unspecified; X58.XXXA Exposure to other specified factors, initial encounter; Y93.89 Activity, other specified; Z79.899 Other long term (current) drug therapy; Y99.8 Other external cause status

== ENCOUNTER 2021-02-13 16:46 | Inpatient (IN) | payer OTHER ==
[~2021-02-13] VITALS: Ht 180.3 cm; Wt 156.0 kg
[~2021-02-13 16:46] MED LIST changes: +BUMETANIDE2 MG PO; +CYMBALTA60 MG PO; +DULCOLAX STOOL100 M1 PO; +NORVASC10 MG PO; +PRINIVIL20 M1 PO; +SINEQUAN75 MG PO; +WELLBUTRIN XL300 MG PO
[2021-02-13 16:53] VITALS: BP 88/53
== END 2021-02-14 00:45 | DRG 871 ==
LOC: ICCU 16:46 → 4E 22:23
PROVIDERS: ADMIT Internal Medicine; ATTEND Internal Medicine
DX: A41.9 Sepsis, unspecified organism (principal); J18.9 Pneumonia, unspecified organism; J96.21 Acute and chronic respiratory failure with hypoxia; E43 Unspecified severe protein-calorie malnutrition; N17.0 Acute kidney failure with tubular necrosis; E87.1 Hypo-osmolality and hyponatremia; Z68.42 Body mass index [BMI] 45.0-49.9, adult; Z51.5 Encounter for palliative care; R65.20 Severe sepsis without septic shock; Z20.822 Contact with and (suspected) exposure to COVID-19; R73.9 Hyperglycemia, unspecified; R74.01 Elevation of levels of liver transaminase levels; I10 Essential (primary) hypertension; R00.1 Bradycardia, unspecified; E83.39 Other disorders of phosphorus metabolism; E83.41 Hypermagnesemia